=== PATIENT | male | born 1970 | race Caucasian/White ===

== ENCOUNTER 2017-01-14 12:52 | Observation (INO) ==
--- NOTE | 2017-01-14 13:14 | Emergency Department Note ---
Disposition Clinical Impression: Chest pain, Alcohol abuse Disposition: Admitted As Inpatient Condition: Fair Forms: ED Satisfaction Letter Time of Disposition: 14:55 Chest Pain HPI - General Chief Complaint: ED Chest Pain Stated Complaint: chest pain Time Seen by Provider: 01/14/17 12:58 Source: patient Mode of arrival: ambulatory Limitations: no limitations Vital Signs Reviewed: Yes Nursing Notes Reviewed: Yes - History of Present Illness HPI Narrative: Patient presents to the ED if the chief complaint of chest pain. Onset this morning, patient complaining of nausea and diaphoresis as well. States she has a history of panic attacks, but this does not feel anything like that. Also complaining of epigastric and right upper quadrant abdominal pain and nausea. No vomiting. States that he is an alcoholic and drinks a fifth of vodka every day. He denies any headache, neck stiffness or fever. Does complain of feeling hot and sweaty, however. No pain or swelling in his legs. No history of DVT, PE or malignancy. No recent travel or surgeries. No previous history of coronary artery disease. Chest pain radiates into his neck on both sides Severity scale (1-10): 9 - Related Data Allergies Allergy/AdvReac Type Severity Reaction Status Date / Time lisinopril Allergy Swelling Verified 01/14/17 12:53 of Lip/Tongue/Throat All systems ED: reviewed and negative except as stated. Constitutional: Reports: fever (subjective), chills Cardiovascular: Reports: chest pain Respiratory: Reports: dyspnea Gastrointestinal: Reports: abdominal pain, nausea Musculoskeletal: Denies: back pain Chest Pain PMH - Past Medical History Medical history: Reports: diabetes, hyperlipidemia, hypertension Psychiatric history: Reports: anxiety, depression, panic disorder - Social History Smoking Status: Current every day smoker Alcohol use: Reports: recent Drug use: Reports: none Physical Exam - General Limitations: no limitations General appearance: alert, anxious, other (Diaphoretic) - Eye Eye exam: Present: normal appearance, PERRL, EOMI - ENT ENT exam: normal exam, normal oropharynx, mucous membranes moist - Neck Neck exam: Present: normal inspection, full ROM, trachea midline - Chest Chest inspection: Present: normal inspection, symmetric chest wall rise - Respiratory Respiratory exam: Present: normal lung sounds bilaterally - Cardiovascular Cardiovascular exam: Present: normal rhythm, tachycardia, normal heart sounds. Absent: regular rate - Abdominal Exam Abdominal exam: Present: soft, tenderness. Absent: Non-Tender, distention, guarding, rebound, rigidity Abdominal tenderness: Present: RUQ, mild, moderate - Extremities Exam Extremities exam: Present: normal inspection, full ROM, normal capillary refill. Absent: tenderness, pedal edema - Neurological Exam Neurological exam: Present: alert, oriented X3 - Psychiatric Psychiatric exam: Present: normal affect, normal mood, anxious - Skin Skin exam: Present: warm, dry, intact, normal color Course Course Narrative: Patient presenting with chest pain, shortness breath. Patient is diaphoretic, nauseated, hypertensive and tachycardic. EKG did not show a STEMI. We will get a CT of his chest, abdomen and pelvis, rule out dissection. Patient is a heavy alcoholic, so we will also evaluate for cirrhosis. We will also check labs, LFTs, troponin. Patient will be admitted Vital Signs Temperature 98.1 F 01/14/17 12:54 Pulse Rate 108 01/14/17 12:54 Respiratory Rate 24 01/14/17 12:54 Blood Pressure 210/122 01/14/17 12:54 O2 Sat by Pulse Oximetry 100 01/14/17 12:54 Temperature 98.1 F 01/14/17 12:54 Pulse Rate 107 01/14/17 14:31 Respiratory Rate 18 01/14/17 14:31 Blood Pressure 197/119 01/14/17 14:31 O2 Sat by Pulse Oximetry 98 01/14/17 14:31 Oxygen Delivery Oxygen Delivery Room Air Chest Pain - Medical Records Medical records reviewed: Yes I reviewed the patient's medical records. - Lab Data Lab results reviewed: Yes I reviewed the patient's lab results. Result diagrams: 01/14/17 13:18 01/14/17 13:18 Lab Results 01/14/17 01/14/17 01/14/17 Range/Units 13:18 13:18 13:18 WBC 7.0 (4.3-11.1) K/mcL RBC 4.56 (4.19-5.50) M/mcL Hgb 15.7 (12.9-16.9) g/dL Hct 42.8 (37.5-50.1) % MCV 93.9 (83.0-100.0) fL MCH 34.4 H (28.0-33.3) pg MCHC 36.7 H (31.6-35.5) g/dL RDW 12.0 (11.5-14.5) % Plt Count 148 (140-400) K/mcL MPV 11.2 (9.4-12.4) fL Immature Gran % 0.3 (0-4) % Seg Neutrophils % 72.5 % Lymphocytes % 19.1 % Monocytes % 7.0 % Eosinophils % 0.7 % Basophils % 0.4 % Neutrophils # 5.1 (1.6-8.9) K/mcL Lymphocytes # 1.3 (0.6-4.6) K/mcL Monocytes # 0.5 (0.0-1.3) K/mcL Eosinophils # 0.1 (0.0-0.6) K/mcL Basophils # 0.0 (0.0-0.2) K/mcL PT 12.1 (9.4-12.1) Seconds INR 1.1 APTT 32.3 (26.0-36.0) Seconds Sodium (136-145) mEq/L Potassium (3.5-4.5) mEq/L Chloride (98-109) mEq/L Carbon Dioxide (19-29) mEq/L BUN (8-26) mg/dL Creatinine (0.72-1.25) mg/dL Est GFR ( Amer) (> 60) Est GFR (Non-Af Amer) (> 60) BUN/Creatinine Ratio (6-26) Glucose (70-99) mg/dL Calculated Osmolality (280-300) Calcium (8.6-10.8) mg/dL Total Bilirubin (0.2-1.2) mg/dL Direct Bilirubin (0.0-0.5) mg/dL Indirect Bilirubin (0.0-1.2) mg/dL AST (5-34) Units/L ALT (0-55) Units/L Alkaline Phosphatase (38-126) Units/L Troponin I (0-0.03) ng/mL B-Natriuretic Peptide 20 (0-100) pg/mL Serum Total Protein (6.0-8.3) g/dL Albumin (3.5-5.0) g/dL Globulin (2.4-3.5) g/dL Albumin/Globulin Ratio (1.1-2.2) Lipase (8-78) Units/L Urine Color (Yellow) Urine Clarity (Clear) Urine pH (5.0-8.0) pH Units Ur Specific Alsen (1.010-1.025) Urine Protein (Neg-Trace) mg/dL Urine Glucose (UA) (Normal) mg/dL Urine Ketones (Negative) mg/dL Urine Blood (Negative) Urine Nitrite (Negative) Urine Bilirubin (Negative) Urine Urobilinogen (Normal) mg/dL Ur Leukocyte Esterase (Negative) Urine Microscopic RBC (0-3) per hpf Urine Microscopic WBC (0-3) per hpf Ur Squamous Epith Cells (None-Few) per lpf Urine Bacteria (None-Few) per hpf Hyaline Casts (None-Few) per lpf Ur Culture Indicated? (NO) Urine Opiates Screen (Cifvzn=131) ng/mL Ur Barbiturates Screen (Kycpdk=501) ng/mL Ur Phencyclidine Scrn (Cutoff=25) ng/mL Ur Amphetamines Screen (Yxjstu=8043) ng/mL U Benzodiazepines Scrn (Ktsjav=443) ng/mL Urine Cocaine Screen (Cutoff= 300) ng/mL U Marijuana (THC) Screen (Cutoff = 50) ng/mL 01/14/17 01/14/17 01/14/17 Range/Units 13:18 13:18 13:50 WBC (4.3-11.1) K/mcL RBC (4.19-5.50) M/mcL Hgb (12.9-16.9) g/dL Hct (37.5-50.1) % MCV (83.0-100.0) fL MCH (28.0-33.3) pg MCHC (31.6-35.5) g/dL RDW (11.5-14.5) % Plt Count (140-400) K/mcL MPV (9.4-12.4) fL Immature Gran % (0-4) % Seg Neutrophils % % Lymphocytes % % Monocytes % % Eosinophils % % Basophils % % Neutrophils # (1.6-8.9) K/mcL Lymphocytes # (0.6-4.6) K/mcL Monocytes # (0.0-1.3) K/mcL Eosinophils # (0.0-0.6) K/mcL Basophils # (0.0-0.2) K/mcL PT (9.4-12.1) Seconds INR APTT (26.0-36.0) Seconds Sodium 136 (136-145) mEq/L Potassium 3.5 (3.5-4.5) mEq/L Chloride 103 (98-109) mEq/L Carbon Dioxide 20 (19-29) mEq/L BUN 6 L (8-26) mg/dL Creatinine 0.76 (0.72-1.25) mg/dL Est GFR ( Amer) > 60 (> 60) Est GFR (Non-Af Amer) > 60 (> 60) BUN/Creatinine Ratio 8 (6-26) Glucose 150 H (70-99) mg/dL Calculated Osmolality 282 (280-300) Calcium 9.5 (8.6-10.8) mg/dL Total Bilirubin 0.9 (0.2-1.2) mg/dL Direct Bilirubin 0.4 (0.0-0.5) mg/dL Indirect Bilirubin 0.5 (0.0-1.2) mg/dL AST 67 H (5-34) Units/L ALT 40 (0-55) Units/L Alkaline Phosphatase 97 (38-126) Units/L Troponin I 0.01 (0-0.03) ng/mL B-Natriuretic Peptide (0-100) pg/mL Serum Total Protein 9.1 H (6.0-8.3) g/dL Albumin 3.6 (3.5-5.0) g/dL Globulin 5.5 H (2.4-3.5) g/dL Albumin/Globulin Ratio 0.7 L (1.1-2.2) Lipase 70 (8-78) Units/L Urine Color (Yellow) Urine Clarity (Clear) Urine pH (5.0-8.0) pH Units Ur Specific Alsen (1.010-1.025) Urine Protein (Neg-Trace) mg/dL Urine Glucose (UA) (Normal) mg/dL Urine Ketones (Negative) mg/dL Urine Blood (Negative) Urine Nitrite (Negative) Urine Bilirubin (Negative) Urine Urobilinogen (Normal) mg/dL Ur Leukocyte Esterase (Negative) Urine Microscopic RBC (0-3) per hpf Urine Microscopic WBC (0-3) per hpf Ur Squamous Epith Cells (None-Few) per lpf Urine Bacteria (None-Few) per hpf Hyaline Casts (None-Few) per lpf Ur Culture Indicated? (NO) Urine Opiates Screen Positive H (Wiyuxb=047) ng/mL Ur Barbiturates Screen Negative (Wtvzqm=536) ng/mL Ur Phencyclidine Scrn Negative (Cutoff=25) ng/mL Ur Amphetamines Screen Negative (Dxkmye=9385) ng/mL U Benzodiazepines Scrn Negative (Omedfp=079) ng/mL Urine Cocaine Screen Negative (Cutoff= 300) ng/mL U Marijuana (THC) Screen Negative (Cutoff = 50) ng/mL 01/14/17 Range/Units 13:50 WBC (4.3-11.1) K/mcL RBC (4.19-5.50) M/mcL Hgb (12.9-16.9) g/dL Hct (37.5-50.1) % MCV (83.0-100.0) fL MCH (28.0-33.3) pg MCHC (31.6-35.5) g/dL RDW (11.5-14.5) % Plt Count (140-400) K/mcL MPV (9.4-12.4) fL Immature Gran % (0-4) % Seg Neutrophils % % Lymphocytes % % Monocytes % % Eosinophils % % Basophils % % Neutrophils # (1.6-8.9) K/mcL Lymphocytes # (0.6-4.6) K/mcL Monocytes # (0.0-1.3) K/mcL Eosinophils # (0.0-0.6) K/mcL Basophils # (0.0-0.2) K/mcL PT (9.4-12.1) Seconds INR APTT (26.0-36.0) Seconds Sodium (136-145) mEq/L Potassium (3.5-4.5) mEq/L Chloride (98-109) mEq/L Carbon Dioxide (19-29) mEq/L BUN (8-26) mg/dL Creatinine (0.72-1.25) mg/dL Est GFR ( Amer) (> 60) Est GFR (Non-Af Amer) (> 60) BUN/Creatinine Ratio (6-26) Glucose (70-99) mg/dL Calculated Osmolality (280-300) Calcium (8.6-10.8) mg/dL Total Bilirubin (0.2-1.2) mg/dL Direct Bilirubin (0.0-0.5) mg/dL Indirect Bilirubin (0.0-1.2) mg/dL AST (5-34) Units/L ALT (0-55) Units/L Alkaline Phosphatase (38-126) Units/L Troponin I (0-0.03) ng/mL B-Natriuretic Peptide (0-100) pg/mL Serum Total Protein (6.0-8.3) g/dL Albumin (3.5-5.0) g/dL Globulin (2.4-3.5) g/dL Albumin/Globulin Ratio (1.1-2.2) Lipase (8-78) Units/L Urine Color Yellow (Yellow) Urine Clarity Clear (Clear) Urine pH 7.0 (5.0-8.0) pH Units Ur Specific [place]sen 1.006 L (1.010-1.025) Urine Protein 100 H (Neg-Trace) mg/dL Urine Glucose (UA) Normal (Normal) mg/dL Urine Ketones Negative (Negative) mg/dL Urine Blood Negative (Negative) Urine Nitrite Negative (Negative) Urine Bilirubin Negative (Negative) Urine Urobilinogen Normal (Normal) mg/dL Ur Leukocyte Esterase Negative (Negative) Urine Microscopic RBC 0-3 (0-3) per hpf Urine Microscopic WBC 0-3 (0-3) per hpf Ur Squamous Epith Cells Moderate H (None-Few) per lpf Urine Bacteria None Seen (None-Few) per hpf Hyaline Casts None Seen (None-Few) per lpf Ur Culture Indicated? NO (NO) Urine Opiates Screen (Wpqqot=715) ng/mL Ur Barbiturates Screen (Zprgzr=227) ng/mL Ur Phencyclidine Scrn (Cutoff=25) ng/mL Ur Amphetamines Screen (Veyirt=9244) ng/mL U Benzodiazepines Scrn (Jmbick=213) ng/mL Urine Cocaine Screen (Cutoff= 300) ng/mL U Marijuana (THC) Screen (Cutoff = 50) ng/mL - Radiology Data Radiology results reviewed: Yes I reviewed the patient's radiology results. Chest X-Ray 01/14/17 13:10 IMPRESSION: No acute cardiopulmonary disease. D/ / Molina Echevarria MD / Molina Echevarria MD Interpreting Provider: Molina Echevarria MD Abdomen/Pelvis CTA 01/14/17 13:11 IMPRESSION: Negative CTA of the chest, abdomen and pelvis with unremarkable appearance of the aorta and no evidence of acute abnormality. Few incidental/chronic findings as described including mild hepatic fatty infiltration as well as mild prominence of the bladder wall which may relate to thickening/cystitis or underdistention, please correlate with LFTs and urinalysis respectively. D/ / Bonnie Lepe MD / Bonnie Lepe MD Interpreting Provider: Bonnie Lepe MD Chest CTA 01/14/17 13:11 IMPRESSION: Negative CTA of the chest, abdomen and pelvis with unremarkable appearance of the aorta and no evidence of acute abnormality. Few incidental/chronic findings as described including mild hepatic fatty infiltration as well as mild prominence of the bladder wall which may relate to thickening/cystitis or underdistention, please correlate with LFTs and urinalysis respectively. D/ / Bonnie Lepe MD / Bonnie Lepe MD Interpreting Provider: Bonnie Lepe MD - EKG Data EKG attestation: Yes I reviewed and interpreted this EKG. EKG results narrative: Sinus tach, rate 104, VA interval 167, QRS 98, QTC 405, left axis deviation, no acute ischemic changes S.B.ANoé - Steffi Situation: Demographics, MOA Background: Presenting Complaint, Relevant PMH, Meds, & Allergies Assessment: Vital Signs, Course and respsone to treatment, Exam Concerns, Patient/Family Expectation, Pertinant Lab Results, Outstanding Labs Recommendation: Barrier(s) to disposition, Recommendation based on pending studies, treatments, or consults S.B.ANoé Report Given to: hospitalist Steffi Repor Time: 14:55
[2017-01-14 13:24] LABS: Basophils % 0.4 %; Eosinophils # 0.1 K/mcL (0.0-0.6); Eosinophils % 0.7 %; Hematocrit 42.8 % (37.5-50.1); Hemoglobin 15.7 g/dL (12.9-16.9); Immature Granulocytes % 0.3 % (0-4); Lymphocytes # 1.3 K/mcL (0.6-4.6); Lymphocytes % 19.1 %; Mean Corpuscular HGB Conc 36.7 g/dL (31.6-35.5); Mean Corpuscular Hemoglobin 34.4 pg (28.0-33.3); Mean Corpuscular Volume 93.9 fL (83.0-100.0); Mean Platelet Volume 11.2 fL (9.4-12.4); Monocytes # 0.5 K/mcL (0.0-1.3); Neutrophils # 5.1 K/mcL (1.6-8.9); Platelet Count 148 K/mcL (140-400); Red Blood Count 4.56 M/mcL (4.19-5.50); Segmented Neutrophils % 72.5 %
[2017-01-14 13:35] LABS: INR 1.1; Prothrombin Time 12.1 Seconds (9.4-12.1)
[2017-01-14 13:38] LABS: Activated Partial Thrombo Time 32.3 Seconds (26.0-36.0)
[2017-01-14 13:40] LABS: Alanine Aminotransferase 40 Units/L (0-55); Albumin 3.6 g/dL (3.5-5.0); Albumin/Globulin Ratio 0.7 (1.1-2.2); Alkaline Phosphatase 97 Units/L (38-126); Aspartate Amino Transferase 67 Units/L (5-34); BUN/Creatinine Ratio 8 (6-26); Bilirubin,Direct 0.4 mg/dL (0.0-0.5); Bilirubin,Indirect 0.5 mg/dL (0.0-1.2); Bilirubin,Total 0.9 mg/dL (0.2-1.2); Blood Urea Nitrogen 6 mg/dL (8-26); Calcium 9.5 mg/dL (8.6-10.8); Carbon Dioxide 20 mEq/L (19-29); Chloride 103 mEq/L (98-109); Globulin 5.5 g/dL (2.4-3.5); Glucose 150 mg/dL (70-99); Lipase 70 Units/L (8-78); Osmolality,Calculated 282 (280-300); Potassium 3.5 mEq/L (3.5-4.5); Sodium 136 mEq/L (136-145); Total Protein 9.1 g/dL (6.0-8.3); eGFR For African Americans > 60 (> 60); eGFR For Non-African Americans > 60 (> 60)
[2017-01-14] MEDS: Nitroglycerin 0.4 MG TAB.SUBL SL ONE ×2 (13:46→14:18)
[2017-01-14 13:58] LABS: Bilirubin,Urine Negative (Negative); Blood,Urine Negative (Negative); Clarity,Urine Clear (Clear); Color,Urine Yellow (Yellow); Glucose,Urine (UA) Normal (Normal); Ketones,Urine Negative (Negative); Leukocyte Esterase,Urine Negative (Negative); Nitrite,Urine Negative (Negative); Protein,Urine 100 mg/dL (Neg-Trace); Specific Gravity,Urine 1.006 (1.010-1.025); Urobilinogen,Urine Normal (Normal)
[2017-01-14 13:59] LABS: Bacteria,Urine None Seen per hpf (None-Few); Hyaline Casts,Urine None Seen per lpf (None-Few); RBC,Urine 0-3 per hpf (0-3); Squamous Epithelial Cell,Urine Moderate per lpf (None-Few); WBC,Urine 0-3 per hpf (0-3)
[2017-01-14 14:05] LABS: Amphetamine Screen,Urine Negative ng/mL (Cutoff=1000); Barbiturate Screen,Urine Negative ng/mL (Cutoff=200); Benzodiazepines Screen,Urine Negative ng/mL (Cutoff=200); Cannabinoid Screen,Urine Negative ng/mL (Cutoff = 50); Cocaine Screen,Urine Negative ng/mL (Cutoff= 300); Opiate Screen,Urine Positive ng/mL (Cutoff=300); Phencyclidine Screen,Urine Negative ng/mL (Cutoff=25)
[2017-01-14] MEDS ORDERED: Aspirin 325 MG TABLET PO ONE (14:34)
[2017-01-14] MEDS ORDERED: *HR* LORazepam 2 MG/ML VIAL IVP ONE (14:54)
--- NOTE | 2017-01-14 15:19 | Emergency Department Note ---
START Narrative - START START: I examined this patient and my medical decision-making was reviewed with the Resident Physician. I agree with the documented findings, disposition and treatment plan as described except to the extent set forth below. 46 year old male with HX of panic attacks and hypertension presents to the ED diaphoretic and complaining of chest pain and shortness of breath. patient states that it is difficulty to manage his HTN and it typicallly is >180/100s. CTA chest/abdomen is neg for aortic dissection and there does not appear to be any end organ damage. his presenting sypmtomat and being diaphoretic do warrant further workup for a chest pain rule out ACS. Patient has been accepted to hpsitalist service.
[2017-01-14] MEDS ORDERED: *HR* LORazepam 2 MG/ML VIAL IVP PRN (15:37)
[2017-01-14] MEDS ORDERED: *HR* LORazepam 1 MG TABLET PO PRN (15:37)
[2017-01-14] MEDS ORDERED: Nitroglycerin 0.4 MG TAB.SUBL SL PRN (15:42)
[2017-01-14] MEDS ORDERED: *HR* Morphine 2 MG/ML SYRINGE IVP PRN ×2 (15:42)
[2017-01-14] MEDS ORDERED: Ipratropium/Albuterol Neb 3 ML IH PRN (15:42)
[2017-01-14] MEDS ORDERED: Naloxone 0.4 MG/ML INJ IVP PRN (15:46)
[2017-01-14] MEDS ORDERED: Ondansetron 4 MG/2 ML VIAL IVP PRN (15:46)
[2017-01-14] MEDS ORDERED: Acetaminophen 325 MG TABLET PO PRN (15:46)
--- NOTE | 2017-01-14 15:52 | Internal Med History&Physical ---
Date of Encounter: 01/14/17 Time of Encounter: 15:49 Assessment and Plan (1) Chest pain Current visit: Yes Status: Acute Chest pain of unclear etiology Monitor troponins, telemetry, repeat EKG Schedule a stress test for the morning, lipid panel Continue aspirin, start Lipitor, nitroglycerin and morphine for pain Omeprazole for GI prophylaxis and Lovenox for DVT prophylaxis. The patient will be admitted for observation. Full code. Time spent on this admission 40 minutes. Qualifiers: Chest pain type: precordial pain Qualified Code(s): R07.2 - Precordial pain (2) Alcohol abuse Current visit: Yes Status: Acute Check alcohol level Start Librium and taper, hold if sedated Use Ativan as needed per CIWA scale (3) Accelerated hypertension Current visit: Yes Status: Acute Continue Coreg, amlodipine and hydralazine Hydralazine IV as needed (4) Panic attacks Current visit: Yes Status: Acute Ativan as needed (5) Diabetes Current visit: Yes Status: Acute Hold metformin and use insulin sliding scale Qualifiers: Diabetes mellitus type: type 2 Diabetes mellitus complication status: without complication Diabetes mellitus senior living insulin use: without senior living use Qualified Code(s): E11.9 - Type 2 diabetes mellitus without complications Internal Medicine - H&P: HPI Chief complaint: Chest pain Admitted From: Emergency Dept History of present illness: Mr. Johnson is a 46 year old male with a past medical history of diabetes type 2 not insulin-dependent, hypertension, hyperlipidemia, alcohol abuse, came to the emergency room complaining of severe chest discomfort that started earlier today around 7 AM. The patient described the pain as pressure like and stabbing like midsternal radiating to the right upper chest and to both shoulders, also his neck. 9 out of 10 in intensity and lasted for about [address] scan of the chest done at the emergency room did not show any abnormalities and his CT scan of the abdomen shows possible cystitis although his UA is unremarkable , he denies any dysuria. His urine tox screen is positive for opiates, no alcohol level has been performed and the patient says that he drinks up to a pint or more of vodka every day and shakes when he does not drink. His last drink was this morning at 9 AM. Has been feeling nauseous and diaphoretic, his blood pressure has been 210/122, heart rate of 108. Is very anxious as he suffers from severe panic disorder. Also glucose is 150 and AST 67. Past Med Surg Social Fam HX - Past Medical History Medical history: diabetes (Not insulin-dependent), hyperlipidemia, hypertension , other (Alcohol abuse, fatty liver disease) Psychiatric history: anxiety, depression, panic disorder - Past Surgical History Surgical History: no surgical history - Social History Smoking Status: Current every day smoker Smokeless Tobacco Status: No Alcohol use: recent Drug use: none - Additional Family History Additional family history: Father with myocardial infarction at the age of 45 and mother with renal cancer Internal Medicine - H&P: Meds Carvedilol [Coreg] 6.25 mg PO BIDWM 01/14/17 [History] 3 Allergy/AdvReac Type Severity Reaction Status Date / Time lisinopril Allergy Swelling Verified 01/14/17 15:32 of Lip/Tongue/Throat All Systems PM: A 10-system review of systems was performed and is negative for pertinent findings except as documented above in the HPI. Review of systems: Continues to have chest discomfort, headache. Other systems out of the 10 revealed were negative - Constitutional Vitals: Temp Pulse Resp BP Pulse Ox 98.1 F 107 16 176/102 98 01/14/17 12:54 01/14/17 14:31 01/14/17 15:37 01/14/17 15:37 01/14/17 14:31 General appearance: Present: A&O X 3 - Head Head exam: Present: atraumatic, normocephalic - Eye Eye exam: Present: PERRL, conjuntiva pink, sclera anicteric Pupils: Present: PERRL - Neck Neck exam general surgery: Present: supple, trachea midline. Absent: lymphadenopathy - Respiratory Respiratory exam: Present: CTAB. Absent: accessory muscle use, rales, rhonchi, wheezes - Cardiovascular Cardiovascular exam: Present: RRR, +S1, +S2, tachycardia. Absent: diastolic murmur, gallop, rubs, systolic murmur - GI/Abdominal GI/Abdominal exam: Present: normal bowel sounds, soft, no peritoneal signs. Absent: distended, tenderness - Extremities Exam Extremities exam: Present: warm, radial pulses palpable and symmetrical. Absent : calf tenderness, cyanotic, pedal edema - Neurological Exam Neurological exam: Present: CN II-XII intact, oriented X3, no focal deficits. Absent: pronater drift, facial droop, speech deficit - Skin Skin exam: Present: dry, intact Internal Med - H&P Results - Labs CBC & Chem 7: 01/14/17 13:18 01/14/17 13:18
[2017-01-14] MEDS ORDERED: *HR* Dextrose 50 % in Water (Syg) 50 ML SYRINGE IVP PRN (15:57)
[2017-01-14] MEDS ORDERED: Dextrose Gel 15 GM PO PRN ×2 (15:57)
[2017-01-14] MEDS ORDERED: D5% in Water 1,000 ML IVC PRN (15:57)
[2017-01-14] MEDS: Aspirin Enteric Coated 81 MG Tablet PO SCH (16:42)
[2017-01-14] MEDS: Insulin LISPRO 300 UNITS/3 ML VIAL SQ SCH ×2 (17:13→19:59)
[2017-01-14] MEDS: hydrALAZINE 25 MG TABLET PO SCH ×3 (17:26→23:34)
[2017-01-14] MEDS: Thiamine (B-1) 100 MG TABLET PO SCH (17:26)
[2017-01-14] MEDS: amLODIPine 5 MG TABLET PO SCH (17:26)
[2017-01-14] MEDS: Folic Acid 1 MG TABLET PO SCH (17:26)
[2017-01-14] MEDS: Vitamin B Complex/Vit C/Vit E 1 EACH TABLET PO SCH (17:26)
[2017-01-14] MEDS: *HR* Enoxaparin 40 MG/0.4 ML SYRINGE SQ SCH (17:28)
[2017-01-14] MEDS ORDERED: *HR* Heparin 5,000 UNIT/ML VIAL SQ SCH (18:00)
[2017-01-14] MEDS: lamoTRIgine 25 MG TABLET PO SCH (19:59)
[2017-01-14] MEDS: risperiDONE 1 MG TABLET PO SCH (19:59)
[2017-01-15] MEDS: *HR* LORazepam 2 MG/ML VIAL IVP PRN ×3 (03:58→21:44)
[2017-01-15 05:39] LABS: BUN/Creatinine Ratio 11 (6-26); Blood Urea Nitrogen 9 mg/dL (8-26); Calcium 9.1 mg/dL (8.6-10.8); Carbon Dioxide 22 mEq/L (19-29); Chloride 105 mEq/L (98-109); Chol/HDL Ratio 4.7 (0-4.9); Cholesterol 202 mg/dL (< 200); Glucose 179 mg/dL (70-99); HDL Cholesterol 43 mg/dL (40-59); LDL Cholesterol,Calculated 104 mg/dL (0-99); Osmolality,Calculated 281 (280-300); Potassium 3.5 mEq/L (3.5-4.5); Sodium 134 mEq/L (136-145); Triglycerides 275 mg/dL (< 150); eGFR For African Americans > 60 (> 60); eGFR For Non-African Americans > 60 (> 60)
[2017-01-15] MEDS: hydrALAZINE 25 MG TABLET PO SCH ×4 (06:22→23:33)
[2017-01-15] MEDS: *HR* Enoxaparin 40 MG/0.4 ML SYRINGE SQ SCH (06:22)
[2017-01-15] MEDS: amLODIPine 5 MG TABLET PO SCH (08:51)
[2017-01-15] MEDS: Folic Acid 1 MG TABLET PO SCH (08:51)
[2017-01-15] MEDS: Aspirin Enteric Coated 81 MG Tablet PO SCH (08:51)
[2017-01-15] MEDS: Vitamin B Complex/Vit C/Vit E 1 EACH TABLET PO SCH (08:52)
[2017-01-15] MEDS: risperiDONE 1 MG TABLET PO SCH (08:52)
[2017-01-15] MEDS: Thiamine (B-1) 100 MG TABLET PO SCH (08:52)
[2017-01-15] MEDS: Insulin LISPRO 300 UNITS/3 ML VIAL SQ SCH ×4 (08:59→20:57)
--- NOTE | 2017-01-15 13:10 | Electrocardiograph Report ---
[place] [id number] Test Date: 2017-01-14 Pat Name: Gamaliel Johnson Department: 104 Room: 3B Gender: M Contracting Analyst: MSC : 1970 Requested By: Chinyere Griffin Order Number: [id number] Reading MD: Daisy Jerez Measurements Intervals [place] Rate: 104 P: 54 [place]: 167 QRS: -17 QRSD: 98 T: 16 QT: 344 QTc: 405 Interpretive Statements SINUS TACHYCARDIA ABNORMAL RHYTHM ECG Electronically Signed On 01-15-2017 12:49:30 EST by Daisy Jerez
--- NOTE | 2017-01-15 17:20 | Internal Med Progress Note ---
Date of Encounter: 01/15/17 Time of Encounter: 17:18 - Assessment and plan (1) Chest pain Current Visit: Yes Status: Acute Assessment and plan: Current visit: Yes Status: Acute Chest pain of unclear etiology Negative troponins, telemetry, repeat EKG Schedule a stress test for the morning, lipid panel Continue aspirin, start Lipitor, nitroglycerin and morphine for pain Qualifiers: Chest pain type: precordial pain Qualified Code(s): R07.2 - Precordial pain (2) Alcohol abuse Current visit: Yes Status: Acute Taper Librium , hold if sedated Use Ativan as needed per CIWA scale (3) Accelerated hypertension Current visit: Yes Status: Acute Continue Coreg, amlodipine and hydralazine Hydralazine IV as needed (4) Panic attacks Current visit: Yes Status: Acute Ativan as needed (5) Diabetes Current visit: Yes Status: Acute Hold metformin and use insulin sliding scale Qualifiers: Diabetes mellitus type: type 2 Diabetes mellitus complication status: without complication Diabetes mellitus equipment operator intermodal yard insulin use: without equipment operator intermodal yard use Qualified Code(s): E11.9 - Type 2 diabetes mellitus without complications Qualifiers: Chest pain type: precordial pain Qualified Code(s): R07.2 - Precordial pain - Subjective Interval history: Very anxious, chest pain on and off, denies any shortness of breath, no abdominal pain or dysuria. No fevers - Constitutional Vitals: Temp Pulse Resp BP Pulse Ox 98.0 F 109 18 135/88 98 01/15/17 16:37 01/15/17 16:37 01/15/17 16:37 01/15/17 16:37 01/15/17 16:37 General appearance: Present: A&O X 3 - Head Head exam: Present: atraumatic, normocephalic - Eye Eye exam: Present: PERRL, conjuntiva pink, sclera anicteric Pupils: Present: PERRL - Neck Neck exam general surgery: Present: supple, trachea midline. Absent: lymphadenopathy - Respiratory Respiratory exam: Present: CTAB. Absent: accessory muscle use, rales, rhonchi, wheezes - Cardiovascular Cardiovascular exam: Present: RRR, +S1, +S2, tachycardia. Absent: diastolic murmur, gallop, rubs, systolic murmur - GI/Abdominal GI/Abdominal exam: Present: normal bowel sounds, soft, no peritoneal signs. Absent: distended, tenderness - Extremities Exam Extremities exam: Present: warm, radial pulses palpable and symmetrical. Absent : calf tenderness, cyanotic, pedal edema - Neurological Exam Neurological exam: Present: CN II-XII intact, oriented X3, no focal deficits. Absent: pronater drift, facial droop, speech deficit - Skin Skin exam: Present: dry, intact Internal Medicine: Result - Labs CBC & Chem 7: 01/14/17 13:18 01/15/17 04:45 Labs: BMP 01/15/17 04:45 Sodium 134 L Potassium 3.5 Chloride 105 Carbon Dioxide 22 BUN 9 Creatinine 0.82 Glucose 179 H Calcium 9.1 Cardiac Enzymes 01/14/17 01/15/17 Range/Units 22:24 04:45 Troponin I 0.01 0.01 (0-0.03) ng/mL - ABG Interpretation ABG results: PT/INR, D-dimer PT 12.1 Seconds (9.4-12.1) 01/14/17 13:18 Consult Discharge Plan - Plan Referrals: NONE,PCP [Primary Care Provider] -
[2017-01-15] MEDS: lamoTRIgine 25 MG TABLET PO SCH (20:00)
[2017-01-16] MEDS: hydrALAZINE 25 MG TABLET PO SCH ×2 (05:28→12:53)
[2017-01-16] MEDS ORDERED: Regadenoson 0.4 MG/5 ML SYRINGE IVP ONE (05:47)
[2017-01-16] MEDS: *HR* LORazepam 2 MG/ML VIAL IVP PRN (06:14)
[2017-01-16] MEDS: *HR* Enoxaparin 40 MG/0.4 ML SYRINGE SQ SCH (06:18)
[2017-01-16] MEDS: Aspirin Enteric Coated 81 MG Tablet PO SCH (09:00)
[2017-01-16] MEDS: amLODIPine 5 MG TABLET PO SCH (09:00)
[2017-01-16] MEDS: risperiDONE 1 MG TABLET PO SCH (09:00)
[2017-01-16] MEDS: Vitamin B Complex/Vit C/Vit E 1 EACH TABLET PO SCH (09:00)
[2017-01-16] MEDS: Thiamine (B-1) 100 MG TABLET PO SCH (09:00)
[2017-01-16] MEDS: Insulin LISPRO 300 UNITS/3 ML VIAL SQ SCH ×2 (09:52→12:54)
[2017-01-16] MEDS: Folic Acid 1 MG TABLET PO SCH (12:53)
[2017-01-16 14:59] VITALS: BP 121/83
--- NOTE | 2017-01-16 15:44 | Discharge Summary ---
Date of Encounter: 01/16/17 Time of Encounter: 15:20 - Discharge Diagnosis (1) Chest pain Priority: Primary Status: Acute Comments: Gamaliel Johnson is a residual male past medical history diabetes, hypertension and alcohol abuse who presented to [facility] on 01/14/2017 with complaints of chest pain. He was placed in observation status for ACS rule out. 1. Chest pain: That started morning of presentation. No known history of CAD. Serial troponins negative. EKG without acute ST changes. Stress test negative for infarct or ischemia. CTA negative for pulmonary embolism. She describes chest pain as tall and localized and epigastric area. Worse with bending over or standing up. Possibly GI source, do not suspect cardiac etiology. Recommended inpatient GI evaluation with history of alcohol abuse however patient declined. He is agreeable to follow up outpatient. No chest pain at time of discharge. 2. Alcohol abuse: Patient reports drinking a fifth of vodka every day. Continue Librium taper at discharge. Recommend alcohol cessation. Advised to follow-up with PCP within one week 3. Accelerated hypertension: With SBP's in 200s on arrival. Suspect anxiety, panic attacks contributing. BP improved with resuming home amlodipine and adding carvedilol and hydralazine. Cont BB and amlodipine at discharge as cannot attest to how BP will tolerate 2 additional antihypertensive agents along with Librium. Recommend follow-up with PCP within one week for BP recheck. 4. Hyperlipidemia: LDL 104, statin initiated. 5. Diabetes: Per history. Continue home diabetes medication regimen. 6. Panic attacks: per hx. Encouraged outpatient follow-up with psychiatry Qualifiers: Chest pain type: precordial pain Qualified Code(s): R07.2 - Precordial pain (2) Accelerated hypertension Priority: Primary Status: Resolved (3) Alcohol abuse Priority: Primary Status: Acute (4) Diabetes Priority: Primary Status: Acute Qualifiers: Diabetes mellitus type: type 2 Diabetes mellitus complication status: without complication Diabetes mellitus superintendent container terminal insulin use: without superintendent container terminal use Qualified Code(s): E11.9 - Type 2 diabetes mellitus without complications (5) Panic attacks Priority: Primary Status: Acute - Discharge Medications Prescriptions: amLODIPine [Norvasc] 10 mg PO DAILY #60 tablet Aspirin Enteric Coated [Aspirin EC] 81 mg PO DAILY #30 tablet. Atorvastatin [Lipitor] 40 mg PO HS #30 tablet Chlordiazepoxide [Librium] 5 mg PO DAILY #60 capsule Home Medications: Carvedilol [Coreg] 6.25 mg PO BIDWM 01/14/17 [History] Aspirin Enteric Coated [Aspirin EC] 81 mg PO DAILY #30 tablet. 01/16/17 [Rx] Atorvastatin [Lipitor] 40 mg PO HS #30 tablet 01/16/17 [Rx] Chlordiazepoxide [Librium] 5 mg PO DAILY #60 capsule 01/16/17 [Rx] amLODIPine [Norvasc] 10 mg PO DAILY #60 tablet 01/16/17 [Rx] Allergies/Adverse Reactions: 3 Allergy/AdvReac Type Severity Reaction Status Date / Time lisinopril Allergy Swelling Verified 01/14/17 15:32 of Lip/Tongue/Throat Procedures/tests Complete & Pending: Procedures Performed prior 72 hours Category Date Time Status NM codie perf SPECT multi [NM] Routine Exams 01/15/17 17:15 Taken EV echocardiogram Routine Y 01/15/17 15:45 Completed SP pharm nuclear stress Routine Y 01/16/17 07:10 Completed Date of admission: 01/14/17 15:01 Primary care physician: PCP NONE Consults: 01/14/17 18:21 Consult to Speech Correction Assistant [CONS] Routine Reason for SW Consult: Resourses for ETOH Discharging clinician: Yvette العراقي Anticipated date of discharge: 01/16/17 - Patient Status Disposition: Home, Self-Care Condition: Good Functional capacity at discharge: independent ambulation Overall status at discharge: patient is back to baseline - Discharge Instructions Instructions: Chlordiazepoxide (By mouth), Chest Pain (DC), Abuse of Alcohol ( DC) Follow Up With: NONE,PCP [Primary Care Provider] - - Diet and Activity Activity: increase activity as tolerated Diet: diabetic diet, low fat, low cholesterol Interval History: Seen and examined at bedside. Patient is new to me, information obtained from chart review and patient report. Patient says he is feeling better and wants to discharge home today. He describes his chest pain is intermittent, dull that occurs with eating and bending down or standing up. Chest pain is localized epigastric area. Does not radiate. I expressed my concern for possible GI source of recommended inpatient GI consultation however patient declined. Says he has close follow-up at home and he will follow up with his PCP. Advised patient to take Librium as prescribed and not abruptly stop. He verbalizes understanding. No chest pain, shortness of breath at time of discharge. Hospital course: See assessment and plan for hospital course - Time Spent with Patient Total time spent providing and/or coordinating discharge services: - Constitutional Vitals: Temp Pulse Resp BP Pulse Ox 97.4 F L 105 20 121/83 97 01/16/17 14:58 01/16/17 14:58 01/16/17 14:58 01/16/17 14:58 01/16/17 14:58 General appearance: Present: A&O X 3 - Head Head exam: Present: atraumatic, normocephalic - Eye Eye exam: Present: PERRL, conjuntiva pink, sclera anicteric Pupils: Present: PERRL - Neck Neck exam general surgery: Present: supple, trachea midline. Absent: lymphadenopathy - Respiratory Respiratory exam: Present: CTAB. Absent: accessory muscle use, rales, rhonchi, wheezes - Cardiovascular Cardiovascular exam: Present: RRR, +S1, +S2. Absent: diastolic murmur, gallop, rubs, systolic murmur - GI/Abdominal GI/Abdominal exam: Present: normal bowel sounds, soft, no peritoneal signs. Absent: distended, tenderness - Extremities Exam Extremities exam: Present: warm, radial pulses palpable and symmetrical. Absent : calf tenderness, cyanotic, pedal edema - Neurological Exam Neurological exam: Present: CN II-XII intact, oriented X3, no focal deficits. Absent: pronater drift, facial droop, speech deficit - Skin Skin exam: Present: dry, intact
== END 2017-01-16 17:15 | disposition home or self-care (01) ==
LOC: 3BNU 12:52 → EMEROO 12:52 → 3BNU 16:03
PROVIDERS: ADMIT Family Medicine; ATTEND Registered Nurse

== ENCOUNTER 2017-02-15 12:03 | Inpatient (IN) ==
[2017-02-15] MEDS ORDERED: Folic Acid 1 MG in D5% in Water 50 ML IVPB ONE (13:02)
[2017-02-15] MEDS ORDERED: Thiamine (B-1) 100 MG in D5% in Water 50 ML IVPB ONE (13:02)
--- NOTE | 2017-02-15 13:25 | Emergency Department Note ---
Disposition Clinical Impression: Alcohol withdrawal delirium Disposition: Admitted As Inpatient Condition: Good Time of Disposition: 22:28 Alcohol HPI - General Chief Complaint: ED Alcohol Abuse Stated Complaint: AMS since yesterday Time Seen by Provider: 02/15/17 12:22 Source: patient, family Mode of arrival: ambulatory Limitations: no limitations Nursing Notes Reviewed: Yes Vital Signs Reviewed: Yes - History of Present Illness HPI Narrative: Mr. Johnson is a 46yo man with history of schizoaffective disorder and alcoholism who presents to the ED with his cousin due to hallucination, tremor, and agitation for two days duration. He apparently discontinued use of alcohol on Sunday, prior to which time he consumed about 700mL vodka daily. He says that he is in an outpatient rehab program, and that he has had a psychiatrist previously treated schizoaffective disorder however they have told him that they will no longer continue to treat him unless he quits drinking. Over the past 2 days the patient has been increasingly agitated, has tremors, and has apparently experienced visual hallucinations. His cousin engines that she has seen an speaking to a wall when there is nobody present. The patient denies nausea and vomiting at this time. Denies tactile hallucinations. He does admit previous history of seizures while withdrawing from alcohol, for which she has been treated with lamotrigine. He denies seizure activity in the time since he quit on Sunday. The patient believes that this is primarily a psychiatric issue , and does not believe that it is related to the alcohol withdrawal. He is uninterested in entering the hospital for observation throughout withdraws. Pt Subjective Complaint: alcohol withdrawal, alcohol dependence, desires rehab Last Drink: days (ago) Alcohol Type: Liquor Amount of alcohol consumed: 700mL Chronic Alcohol Use: Yes - Related Data Home Medications Medication Instructions Recorded Confirmed Metformin HCl [Glucophage] 1,000 mg PO BID 02/15/17 02/15/17 lamoTRIgine [Lamotrigine] 200 mg PO DAILY 02/15/17 02/15/17 Previous Rx's Medication Instructions Recorded Aspirin Enteric Coated [Aspirin EC] 81 mg PO DAILY #30 tablet. 01/16/17 Atorvastatin [Lipitor] 40 mg PO HS #30 tablet 01/16/17 amLODIPine [Norvasc] 10 mg PO DAILY #60 tablet 01/16/17 Allergies Allergy/AdvReac Type Severity Reaction Status Date / Time lisinopril Allergy Swelling Verified 02/15/17 12:11 of Lip/Tongue/Throat Constitutional: Denies: fever, chills, weakness Cardiovascular: Denies: chest pain, palpitations, dyspnea on exertion Respiratory: Denies: cough, dyspnea Gastrointestinal: Denies: abdominal pain, nausea Genitourinary: Denies: dysuria, frequency Musculoskeletal: Denies: arthralgia Integumentary: Denies: rash, pruritus Neurological: Reports: confusion. Denies: headache, weakness Psychiatric: Reports: anxiety, auditory hallucinations, visual hallucinations. Denies: suicidal thoughts, homicidal thoughts Endocrine: Denies: heat or cold intolerance Hematological/Lymphatic: Denies: easy bleeding Past Medical History - Past Medical History Medical history: Reports: diabetes, hyperlipidemia, hypertension, other Surgical history: Reports: no surgical history Psychiatric history: Reports: anxiety, bipolar, depression, panic disorder - Social History Smoking Status: Former smoker Smokeless Tobacco Status: No Alcohol use: Reports: heavy, recent Drug use: Reports: none Physical Exam Gen.: Vitals noted. No acute distress. AAOx3 HEENT: PERRL/EOMI, oropharynx clear, Normocephalic, atraumatic Neck: Supple. No adenopathy. Cardiac: RRR, no murmur, +S1/S2 Pulmonary: CTA bilaterally, no wheezes, rales or rhonchi, equal chest expansion Abdomen: soft, nontender, BS noted, no guarding Back: Nontender throughout. MSK: ROM intact, no joint swelling noted Extremities: 1+ BLE edema, nontender calf, no cyanosis or clubbing Neuro: A&Ox3, moves all extremities, Patient has mild tremor present in arms b/l Psych: Flat affect, agitated appearance when questioned. Denies suicidal/ homicidal ideations. - General Limitations: altered mental status General appearance: alert, in no apparent distress Course - Reevaluation(s) Reevaluation #1: Patient does not have interest in coming into the hospital for observation at this time. We will give him PO thiamine and folic acid, continue psychiatric meds. Time: 13:24 Vital Signs Temperature 98.3 F 02/15/17 12:11 Pulse Rate 96 02/15/17 12:11 Respiratory Rate 16 02/15/17 12:11 Blood Pressure 173/87 02/15/17 12:11 O2 Sat by Pulse Oximetry 97 02/15/17 12:11 Temperature 98.3 F 02/15/17 12:11 Pulse Rate 86 02/15/17 22:00 Respiratory Rate 15 02/15/17 22:00 Blood Pressure 124/69 02/15/17 22:00 O2 Sat by Pulse Oximetry 97 02/15/17 22:00 Oxygen Delivery Oxygen Delivery Room Air Alcohol - MDM Narrative Medical decision making narrative: Clinically, the patient does not appear to have acute delirium tremens. It is difficult to determine the extent of his psychiatric problems because he is very uncooperative with the exam. His sister is concerned that he is a harm to himself and to others. I have done a basic labs to clear that he is medically stable, we have consulted psychiatry to determine if he is fit for admission to their service. - Differential Diagnosis Differential Diagnosis: Likely: alcohol withdrawal syndrome - Medical Records Medical records reviewed: Yes I reviewed the patient's medical records. - Lab Data Lab results reviewed: Yes I reviewed the patient's lab results. Result diagrams: 02/15/17 17:04 02/15/17 17:04 Lab Results 02/15/17 02/15/17 02/15/17 Range/Units 17:04 17:04 17:04 WBC 10.7 (4.3-11.1) K/mcL RBC 4.23 (4.19-5.50) M/mcL Hgb 14.4 (12.9-16.9) g/dL Hct 41.5 (37.5-50.1) % MCV 98.1 (83.0-100.0) fL MCH 34.0 H (28.0-33.3) pg MCHC 34.7 (31.6-35.5) g/dL RDW 12.4 (11.5-14.5) % Plt Count 126 L (140-400) K/mcL MPV 11.6 (9.4-12.4) fL Immature Gran % 0.5 (0-4) % Seg Neutrophils % 68.6 % Lymphocytes % 16.5 % Monocytes % 10.8 % Eosinophils % 3.0 % Basophils % 0.6 % Neutrophils # 7.3 (1.6-8.9) K/mcL Lymphocytes # 1.8 (0.6-4.6) K/mcL Monocytes # 1.2 (0.0-1.3) K/mcL Eosinophils # 0.3 (0.0-0.6) K/mcL Basophils # 0.1 (0.0-0.2) K/mcL Sodium 131 L (136-145) mEq/L Potassium 3.5 (3.5-5.1) mEq/L Chloride 101 (98-107) mEq/L Carbon Dioxide 24 (23-29) mEq/L BUN 17 (6-20) mg/dL Creatinine 0.72 (0.70-1.30) mg/dL Est GFR ( Amer) > 60 (> 60) Est GFR (Non-Af Amer) > 60 (> 60) BUN/Creatinine Ratio 24 (6-26) Glucose 134 H (70-105) mg/dL Calculated Osmolality 276 L (280-300) Calcium 9.0 (8.6-10.3) mg/dL Total Bilirubin 1.4 H (0.3-1.0) mg/dL Direct Bilirubin 0.4 H (0.0-0.2) mg/dL Indirect Bilirubin 1.0 (0.0-1.2) mg/dL AST 68 H (13-39) Units/L ALT 34 (7-52) Units/L Alkaline Phosphatase 86 (34-104) Units/L Ammonia 39 (16-53) mcmol/L Serum Total Protein 7.9 (6.4-8.9) g/dL Albumin 3.9 (3.5-5.7) g/dL Globulin 4.0 H (2.4-3.5) g/dL Albumin/Globulin Ratio 1.0 L (1.1-2.2) Urine Color (Yellow) Urine Clarity (Clear) Urine pH (5.0-8.0) pH Units Ur Specific [place] (1.010-1.025) Urine Protein (Neg-Trace) mg/dL Urine Glucose (UA) (Normal) mg/dL Urine Ketones (Negative) mg/dL Urine Blood (Negative) Urine Nitrite (Negative) Urine Bilirubin (Negative) Urine Urobilinogen (Normal) mg/dL Ur Leukocyte Esterase (Negative) Urine Microscopic RBC (0-3) per hpf Urine Microscopic WBC (0-3) per hpf Ur Squamous Epith Cells (None-Few) per lpf Urine Bacteria (None-Few) per hpf Hyaline Casts (None-Few) per lpf Salicylates < 5.0 L (15.0-30.0) mg/dL Urine Opiates Screen (Gaycbz=349) ng/mL Acetaminophen < 1.0 L (10-30) mcg/mL Ur Barbiturates Screen (Rdyxfc=792) ng/mL Ur Phencyclidine Scrn (Cutoff=25) ng/mL Ur Amphetamines Screen (Nklgdz=4468) ng/mL U Benzodiazepines Scrn (Jlfrum=579) ng/mL Urine Cocaine Screen (Cutoff= 300) ng/mL U Marijuana (THC) Screen (Cutoff = 50) ng/mL Ethyl Alcohol < 10 (0-10) mg/dL 02/15/17 02/15/17 Range/Units 17:09 17:09 WBC (4.3-11.1) K/mcL RBC (4.19-5.50) M/mcL Hgb (12.9-16.9) g/dL Hct (37.5-50.1) % MCV (83.0-100.0) fL MCH (28.0-33.3) pg MCHC (31.6-35.5) g/dL RDW (11.5-14.5) % Plt Count (140-400) K/mcL MPV (9.4-12.4) fL Immature Gran % (0-4) % Seg Neutrophils % % Lymphocytes % % Monocytes % % Eosinophils % % Basophils % % Neutrophils # (1.6-8.9) K/mcL Lymphocytes # (0.6-4.6) K/mcL Monocytes # (0.0-1.3) K/mcL Eosinophils # (0.0-0.6) K/mcL Basophils # (0.0-0.2) K/mcL Sodium (136-145) mEq/L Potassium (3.5-5.1) mEq/L Chloride (98-107) mEq/L Carbon Dioxide (23-29) mEq/L BUN (6-20) mg/dL Creatinine (0.70-1.30) mg/dL Est GFR ( Amer) (> 60) Est GFR (Non-Af Amer) (> 60) BUN/Creatinine Ratio (6-26) Glucose (70-105) mg/dL Calculated Osmolality (280-300) Calcium (8.6-10.3) mg/dL Total Bilirubin (0.3-1.0) mg/dL Direct Bilirubin (0.0-0.2) mg/dL Indirect Bilirubin (0.0-1.2) mg/dL AST (13-39) Units/L ALT (7-52) Units/L Alkaline Phosphatase (34-104) Units/L Ammonia (16-53) mcmol/L Serum Total Protein (6.4-8.9) g/dL Albumin (3.5-5.7) g/dL Globulin (2.4-3.5) g/dL Albumin/Globulin Ratio (1.1-2.2) Urine Color Yellow (Yellow) Urine Clarity Clear (Clear) Urine pH 6.0 (5.0-8.0) pH Units Ur Specific [place] 1.025 (1.010-1.025) Urine Protein 100 H (Neg-Trace) mg/dL Urine Glucose (UA) Normal (Normal) mg/dL Urine Ketones 15 H (Negative) mg/dL Urine Blood Negative (Negative) Urine Nitrite Negative (Negative) Urine Bilirubin Negative (Negative) Urine Urobilinogen Normal (Normal) mg/dL Ur Leukocyte Esterase Negative (Negative) Urine Microscopic RBC 3-5 H (0-3) per hpf Urine Microscopic WBC 3-5 H (0-3) per hpf Ur Squamous Epith Cells Moderate H (None-Few) per lpf Urine Bacteria None Seen (None-Few) per hpf Hyaline Casts None Seen (None-Few) per lpf Salicylates (15.0-30.0) mg/dL Urine Opiates Screen Negative (Htzjzk=984) ng/mL Acetaminophen (10-30) mcg/mL Ur Barbiturates Screen Negative (Sbfwak=287) ng/mL Ur Phencyclidine Scrn Negative (Cutoff=25) ng/mL Ur Amphetamines Screen Negative (Saxfuo=4146) ng/mL U Benzodiazepines Scrn Positive H (Dgufmn=194) ng/mL Urine Cocaine Screen Negative (Cutoff= 300) ng/mL U Marijuana (THC) Screen Negative (Cutoff = 50) ng/mL Ethyl Alcohol (0-10) mg/dL
--- NOTE | 2017-02-15 13:38 | Emergency Department Note ---
START Narrative - START START: Presents with his cousin who brings him here because the patient has been confused starting last night at home. Patient is alcoholic and has been in rehabilitation in the past and stopped drinking 4 days ago, on Sunday. He has a history of schizophrenia. He is not being prescribed his schizophrenia medications because of the fact that his doctor does not want to prescribe medications while he is still drinking. He had been taking Depakote and Lamictal but has not been using those. My suspicion is this is mostly schizophrenia. The patient does have a mild tremor in his blood pressures elevated but he does have a history of hypertension so less likely alcohol withdrawal more likely exacerbation of schizophrenia. He does understand the risks and is insightful and engaging in conversation and he refuses any blood work or admission so my plan at this point will be to prescribe a short course of medication, have the patient set up for outpatient appointment we will try to make that appointment within the next week with a primary care physician, I did speak with the director social service umu and she is in seeing the patient and his cousin right now. Patient is not suicidal no history of suicidal ideation or plan. He does have some white noise but no other auditory hallucinations at this time. [id number] I examined this patient and my medical decision-making was reviewed with the OIL TRANSPORT DRIVER/PA/Advanced Practice Nurse/Resident Physician. I agree with the documented findings, disposition and treatment plan as described except to the extent set forth below. Labs to been reviewed. I did discuss with the nurse and they consulted the psychiatric services [phone]
[2017-02-15] MEDS: Thiamine (B-1) 100 MG TABLET PO SCH (13:50)
[2017-02-15] MEDS: Folic Acid 1 MG TABLET PO SCH (13:50)
[2017-02-15] MEDS ORDERED: diazePAM 10 MG TABLET PO ONE (17:02)
[2017-02-15 17:20] LABS: Basophils # 0.1 K/mcL (0.0-0.2); Basophils % 0.6 %; Eosinophils # 0.3 K/mcL (0.0-0.6); Hematocrit 41.5 % (37.5-50.1); Hemoglobin 14.4 g/dL (12.9-16.9); Immature Granulocytes % 0.5 % (0-4); Lymphocytes # 1.8 K/mcL (0.6-4.6); Lymphocytes % 16.5 %; Mean Corpuscular HGB Conc 34.7 g/dL (31.6-35.5); Mean Corpuscular Volume 98.1 fL (83.0-100.0); Mean Platelet Volume 11.6 fL (9.4-12.4); Monocytes # 1.2 K/mcL (0.0-1.3); Monocytes % 10.8 %; Neutrophils # 7.3 K/mcL (1.6-8.9); Platelet Count 126 K/mcL (140-400); Red Blood Count 4.23 M/mcL (4.19-5.50); Red Cell Distribution Width 12.4 % (11.5-14.5); Segmented Neutrophils % 68.6 %
[2017-02-15 17:35] LABS: Acetaminophen < 1.0 mcg/mL (10-30); Ethanol < 10 mg/dL (0-10); Salicylate < 5.0 mg/dL (15.0-30.0)
[2017-02-15 17:36] LABS: Bilirubin,Urine Negative (Negative); Blood,Urine Negative (Negative); Clarity,Urine Clear (Clear); Color,Urine Yellow (Yellow); Glucose,Urine (UA) Normal (Normal); Ketones,Urine 15 mg/dL (Negative); Leukocyte Esterase,Urine Negative (Negative); Nitrite,Urine Negative (Negative); Protein,Urine 100 mg/dL (Neg-Trace); Specific Gravity,Urine 1.025 (1.010-1.025); Urobilinogen,Urine Normal (Normal)
[2017-02-15 17:36] LABS: Alanine Aminotransferase 34 Units/L (7-52); Albumin 3.9 g/dL (3.5-5.7); Alkaline Phosphatase 86 Units/L (34-104); Aspartate Amino Transferase 68 Units/L (13-39); BUN/Creatinine Ratio 24 (6-26); Bilirubin,Direct 0.4 mg/dL (0.0-0.2); Bilirubin,Total 1.4 mg/dL (0.3-1.0); Blood Urea Nitrogen 17 mg/dL (6-20); Carbon Dioxide 24 mEq/L (23-29); Chloride 101 mEq/L (98-107); Glucose 134 mg/dL (70-105); Osmolality,Calculated 276 (280-300); Potassium 3.5 mEq/L (3.5-5.1); Sodium 131 mEq/L (136-145); Total Protein 7.9 g/dL (6.4-8.9); eGFR For African Americans > 60 (> 60); eGFR For Non-African Americans > 60 (> 60)
[2017-02-15 17:38] LABS: Amphetamine Screen,Urine Negative ng/mL (Cutoff=1000); Bacteria,Urine None Seen per hpf (None-Few); Barbiturate Screen,Urine Negative ng/mL (Cutoff=200); Benzodiazepines Screen,Urine Positive ng/mL (Cutoff=200); Cannabinoid Screen,Urine Negative ng/mL (Cutoff = 50); Cocaine Screen,Urine Negative ng/mL (Cutoff= 300); Hyaline Casts,Urine None Seen per lpf (None-Few); Opiate Screen,Urine Negative ng/mL (Cutoff=300); Phencyclidine Screen,Urine Negative ng/mL (Cutoff=25); Squamous Epithelial Cell,Urine Moderate per lpf (None-Few)
[2017-02-16] MEDS ORDERED: Acetaminophen 325 MG TABLET PO PRN (00:12)
[2017-02-16] MEDS ORDERED: Naloxone 0.4 MG/ML INJ IVP PRN (00:12)
[2017-02-16] MEDS ORDERED: Ondansetron ODT 4 MG TAB.RAPDIS SL PRN (00:12)
[2017-02-16] MEDS ORDERED: Dextrose Gel 15 GM PO PRN ×2 (00:15)
[2017-02-16] MEDS ORDERED: D5% in Water 1,000 ML IVC PRN (00:15)
[2017-02-16] MEDS ORDERED: *HR* Dextrose 50 % in Water (Syg) 50 ML SYRINGE IVP PRN (00:15)
--- NOTE | 2017-02-16 00:19 | Internal Med History&Physical ---
<Richard Dias - Last Filed: 02/16/17 03:26> Date of Encounter: 02/16/17 Time of Encounter: 11:00 Assessment and Plan (1) Alcohol withdrawal delirium Current visit: Yes Status: Acute has mild manifestations of n/v, tactile disturbance, tremor, auditory disturbance, anxiety; Score of 8-14 per CIWA-AR On po Librium 25mg q6h scheduled; on Ativan 1mg IV PRN breakthrough agitation. Admit to ICU bed 8 managed by hospitalist; plan for transfer to step-down tomorrow AM if continues to be stable. (2) Diabetes Current visit: No Status: Acute Chronic DM2; on SSI Qualifiers: Diabetes mellitus type: type 2 Diabetes mellitus complication status: without complication Diabetes mellitus intermediate insulin use: without termite inspector use Qualified Code(s): E11.9 - Type 2 diabetes mellitus without complications (3) Elevated LFTs Current visit: Yes Status: Acute +RUQ pain, heavy drinker NPO except for meds after midnight Liver ultrasound in AM; then likely resume ADA diet. (4) Alcohol abuse Current visit: No Status: Acute Internal Medicine - H&P: HPI Admitted From: Emergency Dept Plans for Post Hospital Care: Home History of present illness: Mr. Johnson is a 46 year old male with PMH non-insulin dependent type 2 DM, HTN , schizoaffective disorder on lamotrigine diagnosed 2002 [facility], and longstanding alcoholism brought in to ED by cousin Haylee with 2 days of auditory hallucination (white noise sounds), UE/LE tremor, and agitation. Pt drinks an average of 1 pint of vodka daily, though has times where he tries to stop drinking like this week, having last drank on Sunday. ED CT head negative, ethyl alc <10 mg/dL, early course HR high 90s, one reading of elevated bp at 173/87. Currently patient is conversant, lying in ICU bed, +mild nausea, worse in AM, + pins and needles, +tremor, intermittent auditory static hallucination, no current visual hallucination (reports rare visual hallucination last occurring in Nov 2016, reports seeing family member and talking with him but turned out to be a piece of tall furniture), mild-mod anxiety/agitation, no sweating. Pt denies seizure history. Past Med Surg Social Fam HX - Past Medical History Medical history: diabetes, hyperlipidemia, hypertension, other Psychiatric history: anxiety, bipolar, depression, panic disorder - Past Surgical History Surgical History: no surgical history - Social History Smoking Status: Former smoker Smokeless Tobacco Status: No Alcohol use: heavy, recent Drug use: none - Family History Mother History Unknown: Yes Living Status: Hx Family Cancer: Yes (kidney cancer) Hx Family Endocrine Disorder: Yes Father History Unknown: Yes Living Status: Hx Family Cardiac Disorders: Yes Hx Family Endocrine Disorder: Yes Internal Medicine - H&P: Meds Aspirin Enteric Coated [Aspirin EC] 81 mg PO DAILY #30 tablet. 01/16/17 [Rx] Atorvastatin [Lipitor] 40 mg PO HS #30 tablet 01/16/17 [Rx] amLODIPine [Norvasc] 10 mg PO DAILY #60 tablet 01/16/17 [Rx] Metformin HCl [Glucophage] 1,000 mg PO BID 02/15/17 [History] lamoTRIgine [Lamotrigine] 200 mg PO DAILY 02/15/17 [History] 3 Allergy/AdvReac Type Severity Reaction Status Date / Time lisinopril Allergy Swelling Verified 02/15/17 12:11 of Lip/Tongue/Throat All Systems PM: A 10-system review of systems was performed and is negative for pertinent findings except as documented above in the HPI. - Constitutional Vitals: Temp Pulse Resp BP Pulse Ox 97.8 F 90 16 123/72 98 02/15/17 23:08 02/15/17 23:08 02/15/17 23:13 02/15/17 23:13 02/15/17 23:08 General appearance: Present: A&O X 3, answers questions appropriately Exam: mild somnolence, - Head Head exam: Present: atraumatic - Neck Neck exam general surgery: Present: full ROM, supple. Absent: lymphadenopathy - Respiratory Respiratory exam: Present: CTAB - Cardiovascular Cardiovascular exam: Present: +S1, +S2. Absent: +S3, +S4, tachycardia - GI/Abdominal Additional comments: RUQ pain, negative curiel sign - Extremities Exam Additional comments: burning/paresthesia distal edge of toes - Neurological Exam Neurological exam: Absent: motor sensory deficit, facial droop, speech deficit Additional comments: patellar reflexes 2/4 Internal Med - H&P Results - Labs CBC & Chem 7: 02/16/17 01:00 02/16/17 01:00 <AponteNancy - Last Filed: 02/16/17 05:34> Date of Encounter: 02/16/17 Internal Medicine - H&P: HPI History of present illness: Mr. Johnson is a 46 year old male All Systems PM: A 10-system review of systems was performed and is negative for pertinent findings except as documented above in the HPI. - Constitutional Vitals: Temp Pulse Resp BP Pulse Ox 96.7 F L 80 24 137/84 100 02/16/17 03:38 02/16/17 05:00 02/16/17 05:00 02/16/17 05:00 02/16/17 05:00 Internal Med - H&P Results - Labs CBC & Chem 7: 02/16/17 01:00 02/16/17 01:00 Labs: Short CBC 02/16/17 Range/Units 01:00 WBC 6.2 (4.3-11.1) K/mcL Hgb 13.7 (12.9-16.9) g/dL Hct 38.8 (37.5-50.1) % Plt Count 108 L (140-400) K/mcL Neutrophils # 4.0 (1.6-8.9) K/mcL BMP 02/16/17 01:00 Sodium 135 L Potassium 3.3 L Chloride 104 Carbon Dioxide 26 BUN 11 Creatinine 0.68 L Glucose 192 H Calcium 8.7 Liver Function 02/16/17 Range/Units 01:00 Total Bilirubin 0.9 (0.3-1.0) mg/dL AST 57 H (13-39) Units/L ALT 31 (7-52) Units/L Alkaline Phosphatase 79 (34-104) Units/L Albumin 3.5 (3.5-5.7) g/dL - Attending Attestation I have seen and examined this pt independently. I have discussed with Resident physician Dr Dias regarding the management plan. Agree with the documentation. Pt has hx of alcoholism and psych disorder. Hallucination possibly due to psych but also possibly due to alcohol withdraw. Will place pt on librium po, CIWA protocol and closely monitor pt. Consider psych consult if symptoms persist.
[2017-02-16] MEDS: Insulin LISPRO 300 UNITS/3 ML VIAL SQ SCH ×6 (00:42→21:39)
[2017-02-16] MEDS: Aspirin Enteric Coated 81 MG Tablet PO SCH ×2 (00:47→08:24)
[2017-02-16] MEDS: *HR* Heparin 5,000 UNIT/ML VIAL SQ SCH ×4 (00:47→21:41)
[2017-02-16] MEDS: amLODIPine 5 MG TABLET PO SCH ×2 (00:47→08:24)
[2017-02-16] MEDS: lamoTRIgine 100 MG TABLET PO SCH ×2 (00:54→08:24)
[2017-02-16] MEDS: *HR* LORazepam 2 MG/ML VIAL IVP PRN ×3 (00:54→08:24)
[2017-02-16 01:11] LABS: Basophils % 0.5 %; Eosinophils # 0.3 K/mcL (0.0-0.6); Eosinophils % 4.2 %; Hematocrit 38.8 % (37.5-50.1); Hemoglobin 13.7 g/dL (12.9-16.9); Immature Granulocytes % 0.2 % (0-4); Lymphocytes # 1.2 K/mcL (0.6-4.6); Lymphocytes % 19.8 %; Mean Corpuscular HGB Conc 35.3 g/dL (31.6-35.5); Mean Corpuscular Hemoglobin 34.6 pg (28.0-33.3); Mean Platelet Volume 11.8 fL (9.4-12.4); Monocytes # 0.7 K/mcL (0.0-1.3); Monocytes % 11.1 %; Platelet Count 108 K/mcL (140-400); Red Blood Count 3.96 M/mcL (4.19-5.50); Red Cell Distribution Width 12.3 % (11.5-14.5); Segmented Neutrophils % 64.2 %
[2017-02-16 01:24] LABS: Alanine Aminotransferase 31 Units/L (7-52); Albumin 3.5 g/dL (3.5-5.7); Alkaline Phosphatase 79 Units/L (34-104); Aspartate Amino Transferase 57 Units/L (13-39); BUN/Creatinine Ratio 16 (6-26); Bilirubin,Total 0.9 mg/dL (0.3-1.0); Blood Urea Nitrogen 11 mg/dL (6-20); Calcium 8.7 mg/dL (8.6-10.3); Carbon Dioxide 26 mEq/L (23-29); Chloride 104 mEq/L (98-107); Globulin 3.6 g/dL (2.4-3.5); Glucose 192 mg/dL (70-105); Osmolality,Calculated 285 (280-300); Phosphorous 1.9 mg/dL (2.7-4.5); Potassium 3.3 mEq/L (3.5-5.1); Sodium 135 mEq/L (136-145); Total Protein 7.1 g/dL (6.4-8.9); eGFR For African Americans > 60 (> 60); eGFR For Non-African Americans > 60 (> 60)
[2017-02-16] MEDS ORDERED: *HR* LORazepam 2 MG/ML VIAL IVP PRN ×2 (02:51)
[2017-02-16] MEDS ORDERED: Potassium Phosphate 44 MEQ in 0.9 % Sodium Chloride 250 ML IVPB ONE (03:00)
[2017-02-16] MEDS: Thiamine (B-1) 100 MG TABLET PO SCH (08:24)
[2017-02-16] MEDS: Folic Acid 1 MG TABLET PO SCH (08:24)
--- NOTE | 2017-02-16 15:38 | Event Note ---
Date of Encounter: 02/17/17 Time of Encounter: 15:34 46/male Insulin-dependent type 2 diabetes mellitus, hypertension, schizo affective disorder, Admitted via emergency room for possible auditory hallucinations/tremors/ drowsiness. Patient is a chronic alcoholic and stopped drinking his alcohol lasted. CT scan was done in the emergency department which was negative for any acute injury. Alcohol level less than 10 mg/dL Patient was hospitalized for alcohol withdrawal. Plan: We will follow [facility] protocol Close observation Transfer out of ICU to regular floor
[2017-02-17] MEDS: *HR* LORazepam 2 MG/ML VIAL IVP PRN ×2 (05:43→14:41)
[2017-02-17] MEDS: *HR* Heparin 5,000 UNIT/ML VIAL SQ SCH ×2 (05:45→14:25)
[2017-02-17] MEDS: Insulin LISPRO 300 UNITS/3 ML VIAL SQ SCH ×2 (07:41→11:56)
--- NOTE | 2017-02-17 08:17 | Discharge Summary ---
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: without [place] [facility] use Qualified Code(s): E11.9 - Type 2 diabetes mellitus without complications (5) Panic attacks Priority: Secondary Status: Acute (6) Elevated LFTs Priority: Secondary Status: Acute - Discharge Medications Home Medications: Aspirin Enteric Coated [Aspirin EC] 81 mg PO DAILY #30 tablet.dr 01/16/17 [Rx] Atorvastatin [Lipitor] 40 mg PO HS #30 tablet 01/16/17 [Rx] amLODIPine [Norvasc] 10 mg PO DAILY #60 tablet 01/16/17 [Rx] Metformin HCl [Glucophage] 1,000 mg PO BID 02/15/17 [History] lamoTRIgine [Lamotrigine] 200 mg PO DAILY 02/15/17 [History] Allergies/Adverse Reactions: 3 Allergy/AdvReac Type Severity Reaction Status Date / Time lisinopril Allergy Swelling Verified 02/15/17 12:11 of Lip/Tongue/Throat Date of admission: 02/16/17 06:44 Primary care physician: PCP NONE Discharging clinician: Patel Thomas - Patient Status Disposition: Left Against Medical Advice Condition: Good Functional capacity at discharge: independent ambulation Overall status at discharge: patient is progressing back to baseline - Discharge Instructions Instructions: Alcohol Intoxication (DC) Follow Up With: NONE,PCP [Primary Care Provider] - Additional Instructions: Please follow up out patient with [facility] since you are established there. Follow-up appointments: If there is not an appointment listed below, please call your physician and schedule a follow-up appointment. If you have congestive heart failure and your symptoms return, make an appointment with your physician. Medication List: Carry an up to date list of medications you are taking at all time. We have given you an updated medication list including any new medications that you have been prescribed. Please provide that list to your primary provider Symptoms: If your condition changes or you experience any of the following symptoms, notify your physician immediately: Unusual or worsening pain, fever, persistent nausea and vomiting, bleeding, increase in swelling (especially in your legs), sudden weight gain, extreme dizziness, chest pain, increased drainage or redness from a wound or incision. Go to the emergency department if you experience a problem with breathing. Weights: If you have a history of swelling or shortness of breath, weigh yourself daily and notify your physician if you have a weight gain of two or more pounds in one day or 5 or more pounds in a week. If you experience any of the warning signs for stroke: Sudden numbness or weakness of the face, arm or leg; especially on one side of the body, sudden confusion, trouble speaking or understanding, sudden trouble seeing in one or both eyes, sudden trouble walking, dizziness, loss of balance or coordination, sudden sever headache with no cause; Call 911 or go to the emergency room. Stroke is a medical emergency. Some risk factors for stroke: Age, cigarette smoking, diabetes, excessive alcohol consumption, family history , high blood pressure, overweight, physical inactivity, prior stroke, heart attack, diagnosis of carotid artery stenosis or other artery disease. If you smoke, STOP: Smoking or tobacco use significantly increases your risk of heart and lung disease. Your chance of disease greatly increases if you continue to smoke. For more information, call the [employer] tobacco quit line for smoking cessation QUIT-NOW ( ) - Diet and Activity Activity: increase activity as tolerated Diet: diabetic diet Interval History: Mr. Johsnon is a 46 year old male with PMH non-insulin dependent type 2 DM, HTN , schizoaffective disorder on lamotrigine diagnosed [facility], and longstanding alcoholism brought in to ED by cousin Haylee with 2 days of auditory hallucination (white noise sounds), UE/LE tremor, and agitation. Pt drinks an average of 1 pint of vodka daily, though has times where he tries to stop drinking like this week, having last drank on Sunday. ED CT head negative, ethyl alc <10 mg/dL, early course HR high 90s, one reading of elevated bp at 173/87. Currently patient is conversant, lying in ICU bed, +mild nausea, worse in AM, + pins and needles, +tremor, mild-mod anxiety/agitation, no sweating. Pt denies seizure history. Hospital course: Patient was hospitalized. Patient was monitored very closely in the ICU as a to overflow of to [facility] patient. Patient was noted to have came out of all his symptoms within next 6-8 hours. Patient was alert and oriented 3. Patient is keen to go home. Patient does not want to continue any further testing. As for the patient's potassium is 3.3 and replacement order placed. patient is not keen for any further work up for chest pain.Risk, Bnefits and alternative options explained to patient of not getting work up for chest pain. plan home today AMA Follow up with PCP patient has follow up appointment with mental health and he promised that he will follow up there. all questions answered. - Time Spent with Patient Total time spent providing and/or coordinating discharge services: - Constitutional Vitals: Temp Pulse Resp BP Pulse Ox 98.6 F 86 16 173/114 97 02/17/17 07:00 02/17/17 07:00 02/17/17 07:00 02/17/17 07:00 02/17/17 07:00 General appearance: Present: A&O X 3, answers questions appropriately - Head Head exam: Present: atraumatic, normocephalic - Eye Eye exam: Present: PERRL, conjuntiva pink, sclera anicteric Pupils: Present: PERRL - Neck Neck exam general surgery: Present: supple, trachea midline. Absent: lymphadenopathy - Respiratory Respiratory exam: Present: CTAB. Absent: accessory muscle use, rales, rhonchi, wheezes - Cardiovascular Cardiovascular exam: Present: RRR, +S1, +S2. Absent: diastolic murmur, gallop, rubs, systolic murmur - GI/Abdominal GI/Abdominal exam: Present: normal bowel sounds, soft, no peritoneal signs. Absent: distended, tenderness - Extremities Exam Extremities exam: Present: warm, radial pulses palpable and symmetrical. Absent : calf tenderness, cyanotic, pedal edema - Neurological Exam Neurological exam: Present: CN II-XII intact, oriented X3, no focal deficits. Absent: pronater drift, facial droop, speech deficit - Skin Skin exam: Present: dry, intact
[2017-02-17] MEDS: Thiamine (B-1) 100 MG TABLET PO SCH (08:33)
[2017-02-17] MEDS: Folic Acid 1 MG TABLET PO SCH (08:33)
[2017-02-17] MEDS: lamoTRIgine 100 MG TABLET PO SCH (08:33)
[2017-02-17] MEDS: amLODIPine 5 MG TABLET PO SCH (08:33)
[2017-02-17] MEDS: Aspirin Enteric Coated 81 MG Tablet PO SCH (08:34)
[2017-02-17 11:07] VITALS: BP 132/80
[2017-02-17] MEDS ORDERED: Water for inj. (sterile) 10 ML IV ONE (14:34)
== END 2017-02-17 16:15 | disposition left against medical advice (07) | DRG 894 ==
LOC: EMEROO 12:03 → ICNU 12:03 → 3BNU 02-16 17:27
PROVIDERS: ADMIT Internal Medicine; ATTEND Internal Medicine